=== PATIENT | male | born 1950 | race Caucasian/White ===

== ENCOUNTER 2022-05-10 14:42 | Outpatient (CLI) | payer MEDICARE, OTHER | END 2022-05-10 14:43 | disposition home or self-care (01) | LOC: ULT 14:42 | PROVIDERS: ATTEND Family Medicine Sports Medicine | DX: R06.00 Dyspnea, unspecified (principal); I08.1 Rheumatic disorders of both mitral and tricuspid valves | CPT/HCPCS: 93306 ==

== ENCOUNTER 2022-05-20 10:18 | Outpatient (CLI) | payer MEDICARE, OTHER | END 2022-05-20 10:19 | disposition home or self-care (01) | LOC: ULT 10:18 | PROVIDERS: ATTEND Family Medicine Sports Medicine | DX: R79.89 Other specified abnormal findings of blood chemistry (principal); J90 Pleural effusion, not elsewhere classified; N28.1 Cyst of kidney, acquired; K76.89 Other specified diseases of liver; I71.4 Abdominal aortic aneurysm, without rupture | CPT/HCPCS: 76700 ==